=== PATIENT | male | born 1955 | race Caucasian/White ===

== ENCOUNTER → 2020-04-30 | Outpatient (CLI) | payer OTHER ==
[~2020-04-30] MED LIST: AMLO-150 PO; CHLO25CA9 PO; HYDR-3246 PO; METH10TA2 PO; RANI-467 PO; SUBOXONE PO; THYR60TA PO; THYR90TA PO
== END | disposition home or self-care (01) ==
LOC: RAD 12:57
PROVIDERS: ATTEND Internal Medicine Gastroenterology
DX: K21.9 Gastro-esophageal reflux disease without esophagitis (principal); K44.9 Diaphragmatic hernia without obstruction or gangrene; K22.2 Esophageal obstruction; R13.19 Other dysphagia
CPT/HCPCS: 74220